=== PATIENT | male | born 1930 | race Caucasian/White ===

== ENCOUNTER 2016-11-10 13:36 | Inpatient (IN) | payer MEDICARE ==
[2016-11-10 14:15] LABS: ABSOLUTE NEUTROPHIL COUNT 5.6 K/mm3 (1.8-7.7); BASO % 0.4 % (0.2-1.0); EOS # 0.2 (0.0-0.5); EOS % 2.5 % (0.9-2.9); HEMATOCRIT 37.5 % (32.0-52.0); HEMOGLOBIN 12.1 gm/l (14.0-18.0); IMM NEUT% 0.3 % (0-1); LYMPH # 2.5 (1.0-4.8); LYMPH % 27.3 % (15-45); MEAN CELL VOLUME 89.5 fl (80.0-94.0); MEAN CORPUSCULAR HEMOGLOBIN 28.9 pg (27.0-31.0); MEAN CORPUSCULAR HGB CONC 32.3 g/dl (33.0-37.0); MEAN PLATELET VOLUME 10.1 fl (7.4-10.4); MONO # 0.9 (0.0-0.8); MONO % 9.4 % (4-12); NEUT % 60.1 % (43-75); PLATELET COUNT 296 K/mm3 (130-400)
[2016-11-10] MEDS ORDERED: ASPIRIN CHEWTAB 81 MG TABLET ONE (14:15)
[2016-11-10 14:28] LABS: TROPONIN I 0.04 ng/ml (0.0-0.06)
[2016-11-10 14:31] LABS: CKMB ISOENZYME 1.3 ng/ml (0.6-6.3)
[2016-11-10 14:33] LABS: ALB/GLOB RATIO 1.5 (>1.0); ALBUMIN 4.5 gm/dL (3.5-5.7)
--- NOTE | 2016-11-10 14:52 | RAD ---
11/10/2016 2:47 PM CHEST - 2 VIEWS History: Chest pain this morning Comparison: 12/20/2015 Findings: Two views of the chest are obtained. The lungs are clear with out effusion or pneumothorax. The cardiomediastinal silhouette is unremarkable.. The osseous structures are intact.. IMPRESSION: No acute intrathoracic process.
[2016-11-10] MEDS ORDERED: MENTHOL/CETYLPYRD 1 EACH LOZENGE PO PRN (16:44)
[2016-11-10] MEDS ORDERED: CALCIUM CARBONATE 500 MG TAB.CHEW PO PRN (16:44)
[2016-11-10] MEDS ORDERED: BISACODYL 10 MG SUP PR PRN (16:44)
[2016-11-10] MEDS ORDERED: BISACODYL 5 MG TABLET.EC PO PRN (16:44)
[2016-11-10] MEDS ORDERED: SODIUM CHLORIDE 0.9% 100 ML IV PRN (16:44)
[2016-11-10] MEDS ORDERED: BLISTEX LIPSTICK 1 EACH TP PRN (16:44)
[2016-11-10] MEDS ORDERED: MAGNESIUM HYDROXIDE 30 ML UDCUP PO PRN (16:44)
[2016-11-10] MEDS ORDERED: ACETAMINOPHEN 325 MG TABLET PO PRN (16:44)
[2016-11-10 17:02] VITALS: BMI 29.8
[2016-11-10] MEDS ORDERED: INSULIN ASPART (DOSE) 100 UNITS/1 ML SUB-Q PRN (18:25)
[2016-11-10] MEDS ORDERED: FINASTERIDE 5 MG TABLET PO SCH (20:00)
[2016-11-10] MEDS: PANTOPRAZOLE 40 MG TABLET DR PO SCH (20:27)
[2016-11-10] MEDS: DOCUSATE SODIUM 100 MG CAPSULE PO SCH (20:27)
[2016-11-11 05:58] LABS: CHOLESTEROL RISK RATIO 4.3 (4.0-6.7)
--- NOTE | 2016-11-11 07:54 | HP ---
Mann Mendoza [id number] DATE OF ADMISSION: 11/10/2016 CHIEF COMPLAINT: Chest pain. HISTORY OF PRESENT ILLNESS: This patient is an 86-year-old male with a past medical history significant for coronary artery disease involving the igiugig vessels as well as bypass arteries who presented to the [facility] Emergency Department with complaints of chest pain symptoms which began approximately 10:00 to 10:30 a.m. this morning. He was seen in the emergency department at 1:30 p.m. He reports that his pain symptoms came on while he was driving and initially felt an ache in his left arm which rapidly progressed to his left chest and even felt some discomfort in the left side of the face. His pain symptoms initially were mild, but gradually progressed from a 2/10 to a 7/10 in intensity over the course of about an hour. He took a nitroglycerin, but the pain symptoms did not dramatically change, perhaps got reduced to a 5/10. His symptoms gradually slowly improved to the point that when he was seen in the emergency department he felt pain level of about 3/10 at around 1:30 p.m. He received a second nitroglycerin. By the time he arrived to the medical unit his symptoms had completely resolved, but he did not recall any dramatic lessening of his symptoms with the second dose of nitroglycerin. He reports that he worked out like usual on the treadmill at the gym this morning, but did feel like he had decreased exercise tolerance and increased dyspnea on exertion. He states he rarely has angina and has not taken any nitroglycerin for about 5 years. REVIEW OF SYSTEMS: He has had no recent fevers, chills, or upper respiratory symptoms. He denies any wheezing, cough, orthopnea, or palpitations. No lower extremity edema. No heartburn, nausea, vomiting, diarrhea, or constipation. He has had no new arthralgias. No headaches, fainting, blackouts, or seizures. No urinary complaints. His review of systems is otherwise negative. PAST MEDICAL HISTORY: Negative for any recent hospitalizations. He has had adult onset diabetes for about 10 years now without complications. He had his first myocardial infarction back in 1995. He has been followed by [facility] for his heart disease. He has a history of supraventricular tachy arrhythmias beginning in 2011 and has had a successful ablative procedure for that. He no longer takes a beta ashly. He has had some dyslipidemia and has been on statin therapy for some time. He has had some benign prostatic hypertrophy and some gastroesophageal reflux disease. He denies any other chronic medical problems. Coronary artery disease. He had his last myocardial perfusion study in 2011 showing no reversible ischemia, small to moderate scar on the right coronary artery distribution and an ejection fraction of 71%. PAST SURGICAL HISTORY: He had an upper endoscopy in [address] Ocampo. I do not see a colonoscopy on file. His surgical history is also significant for ablation of five areas of focal atrial tachy arrhythmias in October [address] Cabrera. He had a four vessel coronary artery bypass in 1997. He had two cardiac catheterizations in 2003 and a third one in 2005. He states he had stents placed since he had his bypass, but I do not have records of that on file with [facility] and by their cath report in 2005 his grafts were patent with collaterals evident. He had a tonsillectomy with an adenoidectomy as a child. He had a lymph node removed from the left submandibular area as a child as well which was benign. ALLERGIES: SHELLFISH HAS BEEN DOCUMENTED. CURRENT MEDICATIONS: Consist of: 1. Jayda Keaau one tablet twice daily. 2. Prilosec 20 mg twice daily. 3. Metformin 1000 mg twice daily. 4. Proscar 5 mg at bedtime. 5. Lipitor 10 mg daily. 6. Enteric coated aspirin 81 mg daily. FAMILY HISTORY: Negative for any history of diabetes in the family. His father at the age of 48 of a stroke and his mother at an early age of ovarian cancer. SOCIAL HISTORY: He is currently in his second marriage. His jus recently had a back surgery, but is otherwise doing well. He has a stepdaughter from his second marriage and five biological children from his first marriage. He is a former pipe smoker, but quit in 1995 and never used cigarettes. He occasionally drinks alcohol and denies any illicit drug use. His primary care provider is Dr. Mercer. PHYSICAL EXAMINATION: VITAL SIGNS: Shows a body mass index of 29.8, weight of 86.4 kg, temperature 97.5, pulse 55, blood pressure 151/64, respirations 18, oxygen saturations are 97% on room air. GENERAL: This is a well-developed, well-nourished male in no acute distress. HEENT: Unremarkable. NECK: Supple without lymphadenopathy or thyromegaly. LUNGS: Clear to auscultation bilaterally. CARDIOVASCULAR: Reveals a regular rate and rhythm without a murmur. ABDOMEN: Soft, nontender, nondistended with positive bowel sounds. EXTREMITIES: No peripheral edema. Dorsalis pedis pulses are 2+ in both feet. SKIN: Warm, dry, and intact. DIAGNOSTICS: A 12-lead EKG shows sinus rhythm with a first degree AV block, Q-waves in the anterior leads and inferior leads, no acute ST or T-wave changes are seen. Chest x-ray shows no acute cardiopulmonary abnormality. LABORATORY STUDIES: Included a CBC with a hemoglobin of 12.1 and a platelet count of 296,000, white count is normal at 9.3. Chemistry profile shows normal electrolytes, creatinine mildly elevated or borderline at 1.3, glucose 126. Liver function tests are normal. Total CPK is 39 with CK-MB of 1.3, troponin I is 0.04. ASSESSMENT: The patient has chest pain, unclear etiology. He has a history of coronary artery disease. He has a history of gastroesophageal reflux disease, chronic essential hypertension, and adult onset diabetes. He is placed under observation on telemetry med/surg status. We will get serial cardiac enzymes and if they are negative we will likely proceed with a Lexiscan myocardial perfusion study to better stratify his risk. He will continue his Lipitor, Proscar, and Prilosec. I am going to hold his metformin and cover him with sliding scale NovoLog. Further treatment and recommendations will depend on his hospital course. JOB: [id number] CC: Dr. Ruslan Claros, bowl sander
[2016-11-11] MEDS ORDERED: ATORVASTATIN CALCIUM 10 MG TABLET PO SCH (09:00)
[2016-11-11] MEDS ORDERED: ASPIRIN (ENTERIC COATED) 325 MG TABLET.EC PO SCH (09:00)
[2016-11-11] MEDS ORDERED: CLOPIDOGREL BISULFATE 75 MG TABLET PO ONE (09:34)
[2016-11-11] MEDS ORDERED: HEPARIN SODIUM PREMIX 500 ML IV SCH (09:36)
[2016-11-11] MEDS ORDERED: METOPROLOL TARTRATE 25 MG TABLET PO SCH (10:00)
[2016-11-11] MEDS: PANTOPRAZOLE 40 MG TABLET DR PO SCH (10:20)
[2016-11-11] MEDS: DOCUSATE SODIUM 100 MG CAPSULE PO SCH (10:20)
[2016-11-11] MEDS ORDERED: PUMP TUBING ONE (10:43)
[2016-11-11 11:19] VITALS: BP 129/61
[2016-11-11 11:30] LABS: INR 1.01; PROTHROMBIN TIME 10.6 SECONDS (9.3-11.4)
[2016-11-11 11:31] LABS: PARTIAL THROMBOPLASTIN TIME 23.6 SECONDS (24.5-33.0)
--- NOTE | 2016-11-11 13:55 | TS ---
Mann Mendoaz DATE OF ADMISSION: 11/10/2016 DATE OF TRANSFER: 11/11/2016 ACCEPTING FACILITY: [facility]. ACCEPTING PHYSICIAN: Dr. Burch. REASON FOR TRANSFER: 1. Non-ST elevation myocardial infarction, access to cardiac catheterization lab, and cardiology services. 2. Unstable angina/coronary artery disease. 3. Chronic essential hypertension. 4. Adult onset diabetes which has been managed with metformin. 5. Gastroesophageal reflux disease. 6. Benign prostatic hypertrophy. TO SUMMARIZE THE ADMISSION AND HOSPITAL COURSE: The patient is an 86-year-old male with a history of coronary artery disease status post coronary artery bypass in the who presented with chest pain symptoms beginning in the morning of November 10. He presented without any acute EKG changes and normal troponin levels, but given his history and concerning symptoms he was referred to the hospitalist service for observation. He was monitored on telemetry overnight. He did show an increase in his troponin levels. Initially, they measured at 0.04. At 8:10 p.m. his troponin bumped to 0.14 and then by November 11 at 5:00 a.m. it was up to 0.22. Based on his troponin elevation he was started on heparin and loaded on Plavix and also started low dose metoprolol. I consulted with Dr. Burch at [facility] and the patient, the postdoctoral research associate, and I decided to transfer him for further workup including angiography. CONDITION AT THE TIME OF TRANSFER: Stable. PHYSICAL EXAMINATION: VITALS: At the time of transfer showed a body mass index of 29.8, weight of 86.4 kg, temperature 98.0, pulse 59, blood pressure 141/68, respirations 17, oxygen saturation 95% on room air. GENERAL: This is an elderly male in no acute distress. HEENT: Unremarkable. LUNGS: Clear to auscultation bilaterally. CARDIOVASCULAR: Reveals a regular rate and rhythm without a murmur. ABDOMEN: Soft, nontender, nondistended with positive bowel sounds. EXTREMITIES: Show no peripheral edema. DIAGNOSTICS: His EKG shows old inferior Q-waves, but no acute ST or T-wave changes. LABORATORY STUDIES: On the day of his transfer show a fasting total cholesterol of 129, LDL cholesterol of 69. Troponin I of 0.22. Creatinine of 1.3 with normal electrolytes. DISPOSITION: [facility] for cardiac catheterization. He will be transported by ground ACLS transport under close monitoring and on a heparin drip. JOB: [id number] CC: Dr. Ruslan Burch.
== END 2016-11-11 11:35 | disposition short-term general hospital (02) | DRG 282 ==
LOC: ED 13:36 → MS 15:39 → ICU 17:00 → OBSVTOIN 11-11 09:33
PROVIDERS: ADMIT Family Medicine; ATTEND Family Medicine
DX: I21.4 Non-ST elevation (NSTEMI) myocardial infarction (principal); I25.10 Atherosclerotic heart disease of native coronary artery without angina pectoris; E11.9 Type 2 diabetes mellitus without complications; E78.5 Hyperlipidemia, unspecified; N40.0 Benign prostatic hyperplasia without lower urinary tract symptoms; K21.9 Gastro-esophageal reflux disease without esophagitis; I10 Essential (primary) hypertension